=== PATIENT | male | born 1995 | race Caucasian/White ===

== ENCOUNTER 2022-01-14 22:10 | Emergency (ER) | payer SELFPAY ==
[~2022-01-14] VITALS: Ht 170.2 cm; Wt 84.0 kg
[2022-01-14 22:10] VITALS: BP 138/97
[~2022-01-14 22:10] MED LIST: CEPH500T PO; SULF1TAB48 PO
== END 2022-01-14 23:08 | disposition left against medical advice (07) ==
LOC: ER 22:10
DX: R55 Syncope and collapse (principal); R53.1 Weakness; F10.129 Alcohol abuse with intoxication, unspecified; Y90.0 Blood alcohol level of less than 20 mg/100 ml
CPT/HCPCS: 93005; 99283

== ENCOUNTER 2023-08-30 20:42 | Emergency (ER) | payer SELFPAY ==
[~2023-08-30] VITALS: Ht 172.7 cm; Wt 68.0 kg
[2023-08-30 21:48] VITALS: TEMP 98.1; O2SAT 100
[2023-08-30] MEDS ORDERED: IBUPROFEN 600MG TABLET PO ONE (23:00)
[2023-08-30] MEDS ORDERED: IBUP-2029 MT (23:03)
[2023-08-30 23:52] VITALS: BP 132/78; PULSE 89; RESP 16
== END 2023-08-30 23:54 | disposition home or self-care (01) ==
LOC: ER 20:42
DX: S60.212A Contusion of left wrist, initial encounter (principal); Z98.890 Other specified postprocedural states; W18.30XA Fall on same level, unspecified, initial encounter; Y93.89 Activity, other specified; Y92.89 Other specified places as the place of occurrence of the external cause; Y99.8 Other external cause status
CPT/HCPCS: 73110; 99283

== ENCOUNTER 2023-11-12 05:13 | Emergency (ER) | payer SELFPAY ==
[~2023-11-12] VITALS: Ht 172.7 cm; Wt 76.0 kg
[~2023-11-12 05:13] MED LIST changes: +IBUP-2029 MT
[2023-11-12 05:52] VITALS: O2SAT 98
[2023-11-12] MEDS: ACETAMINOPHEN 325MG TABLET PO NR (08:15)
[2023-11-12] MEDS: TETANUS, DIPHTHERIA, PERTUSSIS VAC/PF 0.5ML (>10YR OLD) IM ONE ×2 (08:15→11:30)
[2023-11-12] MEDS: LIDOCAINE HCL/PF 1% 10 MG/ML 5ML VIAL INFIL NR (09:45)
[2023-11-12] MEDS: BACITRACIN ZINC OINT UDPKT TOP NR (09:45)
[2023-11-12 12:18] VITALS: BP 103/68; PULSE 96; RESP 19; TEMP 98.5
== END 2023-11-12 12:20 | disposition home or self-care (01) ==
LOC: ER 05:13
DX: S61.412A Laceration without foreign body of left hand, initial encounter (principal); X58.XXXA Exposure to other specified factors, initial encounter; Y93.89 Activity, other specified; Y92.89 Other specified places as the place of occurrence of the external cause; Y99.8 Other external cause status
CPT/HCPCS: 73130; 12002; 99291; J3490; Z7610 ×2

== ENCOUNTER 2023-12-27 12:12 | Emergency (ER) | payer MEDICAID ==
[~2023-12-27] VITALS: Ht 172.7 cm; Wt 62.0 kg
[2023-12-27 12:25] VITALS: BP 123/85; PULSE 85; RESP 16; TEMP 98.2; O2SAT 98
== END 2023-12-27 17:04 | disposition left against medical advice (07) ==
LOC: ER 12:12
DX: S00.211A Abrasion of right eyelid and periocular area, initial encounter (principal); V89.2XXA Person injured in unspecified motor-vehicle accident, traffic, initial encounter; Y93.89 Activity, other specified; Y92.89 Other specified places as the place of occurrence of the external cause; Y99.8 Other external cause status
CPT/HCPCS: 71045; 73562; 99284

== ENCOUNTER 2024-12-26 22:27 | Emergency (ER) | payer SELFPAY ==
[~2024-12-26] VITALS: Ht 172.7 cm; Wt 62.4 kg
[2024-12-26 22:54] VITALS: O2SAT 99
[2024-12-26 22:59] VITALS: BP 109/74; PULSE 84; RESP 16; TEMP 37.2; O2SAT 99
== END 2024-12-26 23:00 | disposition left against medical advice (07) ==
LOC: ER 22:27
DX: S61.419A Laceration without foreign body of unspecified hand, initial encounter (principal); Z53.21 Procedure and treatment not carried out due to patient leaving prior to being seen by health care provider; X58.XXXA Exposure to other specified factors, initial encounter; Y93.89 Activity, other specified; Y92.89 Other specified places as the place of occurrence of the external cause; Y99.8 Other external cause status